=== PATIENT | female | born 1970 | race Caucasian/White ===

== ENCOUNTER 2024-05-17 11:00 | Emergency (ER) | payer OTHER, SELFPAY ==
[2024-05-17 11:15] VITALS: BP 137/101; PULSE 116; TEMP 38.1; O2SAT 98; BMI 32.8
--- NOTE | 2024-05-17 11:23 | XR_ITS ---
The [address] [address] Patient Name: SHANTA GALLARDO MRN: [id number] date: 1970 Sex: F Assigned Patient Location: ER Current Patient Location: ER Accession/Order Number: [id number] Exam Date: 05/17/2024 11:27 Report Date: 05/17/2024 11:44 At the request of: KINJAL DE LEON Procedure: XR chest 1V EXAMINATION: XR chest 1V HISTORY: cough COMPARISON: XR chest 02/19/2022 FINDINGS: LUNGS: No significant pulmonary parenchymal abnormalities. VASCULATURE: No increased pulmonary vasculature. PLEURA: No pneumothorax, effusion, or pleural thickening. CARDIAC: No cardiomegaly or cardiac silhouette abnormality. MEDIASTINUM: No visible mass or adenopathy. BONES: No fracture or visible bone lesion. OTHER: Negative. XR/XR chest 1V IMPRESSION: 1. No acute cardiopulmonary process. Stable chest. Electronically authenticated by: HI BRITT Date: 05/17/2024 11:44
[2024-05-17 11:25] VITALS: O2SAT 97
--- NOTE | 2024-05-17 11:34 | ED.URI1 ---
HPI - URI/Sore Throat General Chief Complaint: Upper Respiratory Infection Stated Complaint: URTRI COMPLAINTS ` Time Seen by Provider: 05/17/24 11:19 Source: patient History of Present Illness HPI Narrative: 54-year-old female presents for cough and bodyaches and fever. She was sick with COVID in late April but now the symptoms started 3 days ago. She has had a nonproductive cough. She was found to have a fever at triage but has not had any antipyretics today. 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 Related Data Previous Rx's ?Medication ?Instructions ?Recorded albuterol sulfate 2.5 mg/3 mL 2.5 mg (3 mL) inhalation Q6H PRN 05/17/24 (0.083 %) solution for nebulization shortness of breath or wheezing #90 mL Allergies Allergy/AdvReac Type Severity Reaction Status Date / Time No Known Drug Allergies Allergy Verified 05/17/24 11:19 Review of Systems ROS Narrative A ten point review of systems is negative except as noted above. PFSH PFSH Social History Little interest or pleasure in doing things: not at all Feeling down, depressed, or hopeless: not at all Exam Narrative Exam Narrative: Nurses note and vital signs reviewed and patient is not hypoxic. General: The patient is frequently coughing. She is in no acute respiratory distress Skin: Warm, dry, no pallor noted. There is no rash noted. Head: Normocephalic, atraumatic Eye: Normal conjunctiva, no drainage Ears, Nose, Mouth, and Throat: oral mucosa is moist. Nares patent. Cardiovascular: Regular Rate and Rhythm Respiratory: Patient is in no distress, no accessory muscle use, lungs are clear to auscultation, no wheezing, rales or rhonchi Back: non-tender GI: Soft and nontender Musculoskeletal: The patient has no evidence of calf tenderness, no pitting edema, symmetrical pulses noted bilaterally Neurological: A&O, normal speech Psychiatric: Cooperative Constitutional Vital Signs, click to edit/add: Last Vital Signs Temp 100.5 F H 05/17/24 11:15 Pulse 116 H 05/17/24 11:15 Resp 20 05/17/24 11:15 BP 137/101 H 05/17/24 11:15 Pulse Ox 97 05/17/24 11:25 O2 Del Method Room Air 05/17/24 11:25 Course Vital Signs Vital signs: Vital Signs Temperature 100.5 F H 05/17/24 11:15 Pulse Rate 116 H 05/17/24 11:15 Respiratory Rate 20 05/17/24 11:15 Blood Pressure 137/101 H 05/17/24 11:15 Pulse Oximetry 98 05/17/24 11:15 Oxygen Delivery Method Room Air 05/17/24 11:15 Temperature 100.5 F H 05/17/24 11:15 Pulse Rate 116 H 05/17/24 11:15 Respiratory Rate 20 05/17/24 11:15 Blood Pressure 137/101 H 05/17/24 11:15 Pulse Oximetry 97 05/17/24 11:25 Oxygen Delivery Method Room Air 05/17/24 11:25 MDM - URI/Sore Throat MDM Narrative Medical decision making narrative: The patient is positive for influenza. Chest x-ray was negative. She was given a refill for the medicine for her nebulizer machine at home, albuterol. Treatment diagnosis and follow-up were discussed with the patient Differential Diagnosis Differential diagnosis: Likely upper respiratory infection, viral infection, influenza and other (COVID, pneumonia) Lab Data Attestation: I reviewed the patient's lab results. Labs: Lab Results 05/17/24 Range/Units 11:23 Influenza Type A Ag Positive A Influenza Type B Ag Negative SARS-CoV-2 Ag (CV2AG) Negative (NEGATIVE) Imaging Data Chest x-ray: Radiologist's impression: ITS Impressions Chest X-Ray 05/17/24 11:23 IMPRESSION: 1. No acute cardiopulmonary process. Stable chest. Electronically authenticated by: HI BRITT Date: 05/17/2024 11:44 Discharge Plan Discharge Chief Complaint: Upper Respiratory Infection Clinical Impression: Influenza Patient Disposition: Home, Self-Care Time of Disposition Decision: 12:19 Condition: Good Mode of Transportation: Private Vehicle Prescriptions / Home Meds: New albuterol sulfate 2.5 mg /3 mL (0.083 %) solution for nebulization 2.5 mg inhalation Q6H PRN (Reason: shortness of breath or wheezing) Qty: 90 0RF Print Language: Omani Instructions: Influenza (ED), Flu Shot (Vaccine) for Adults (ED) Referrals: Physician,Non-Staff, MD [Primary Care Provider] - 1 week
[2024-05-17] MEDS: ACETAMINOPHEN 325 MG TABLET 650 MG PO (11:37)
[2024-05-17 12:13] LABS: Influenza Virus A Antigen Positive; Influenza Virus B Antigen Negative; Internal Control Within Normal Limits; SARS-CoV-2 Ag NEGATIVE (NEGATIVE)
== END 2024-05-17 12:33 | disposition home or self-care (01) ==
PROVIDERS: Emergency Provider Emergency Medicine
DX: J10.1 Influenza due to other identified influenza virus with other respiratory manifestations (principal); R50.9 Fever, unspecified
CPT/HCPCS: 71045; 87804; 87811; 99284